=== PATIENT | female | born 1965 | race Hispanic/Latino ===

== ENCOUNTER 2018-03-28 20:05 | Emergency (ER) | payer OTHER ==
[2018-03-28 20:23] LABS: APPEARANCE,URINE Clear (CLEAR); BILIRUBIN,URINE Negative (NEGATIVE); COLOR,URINE Yellow (YELLOW); GLUCOSE, URINE (UA) Negative (NEGATIVE); KETONES,URINE Negative (NEGATIVE); LEUKOCYTE ESTERASE ,URINE Small (NEGATIVE); NITRATE,URINE Negative (NEGATIVE); OCCULT BLOOD,URINE Moderate (NEGATIVE); PROTEIN,URINE Negative (NEGATIVE); UROBILINOGEN,URINE 0.2 mg/dL (0.2-1.0)
[2018-03-28 20:28] LABS: BASOPHILS % (AUTO) 1.5 % (0.0-5.0); EOSINOPHILS % (AUTO) 4.2 % (0.0-8.0); HEMATOCRIT 41.9 % (36-48); LYMPHOCYTES % (AUTO) 44.7 % (21.0-51.0); MEAN CORPUSCULAR HEMOGLOBIN 29.7 pg (27.0-33.0); MEAN CORPUSCULAR HGB CONC 35.3 g/dL (32.0-36.0); MEAN CORPUSCULAR VOLUME 84.1 fL (79-99); MONOCYTES % (AUTO) 7.3 % (3.0-13.0); NEUTROPHILS % (AUTO) 42.3 % (40.0-77.0); NUCLEATED RED BLOOD CELLS 0.1 % (0.0-0.19); PLATELET COUNT (AUTO) 348 K/uL (130-400); RED BLOOD CELL COUNT(AUTO) 4.99 MIL/uL (4.00-5.50); RED CELL DISTRIBUTION WIDTH 13.6 % (11.0-15.5); WHITE BLOOD COUNT (AUTO) 6.2 K/uL (4.8-10.8)
[2018-03-28 20:37] LABS: POTASSIUM 3.2 mmol/L (3.5-5.1)
[2018-03-28 20:38] LABS: BACTERIA,URINE Few /HPF (None Seen)
[2018-03-28 20:40] LABS: MUCUS,URINE Few LPF (None Seen); SQUAMOUS EPITHELIAL CELL,UR Rare /HPF (0-2)
[2018-03-28 20:42] LABS: ALBUMIN 3.6 g/dL (3.5-5.0); BILIRUBIN,TOTAL 0.3 mg/dL (0.2-1.0); TOTAL PROTEIN, SERUM 7.6 g/dL (6.0-8.3)
[2018-03-28] MEDS ORDERED: IOPAMIDOL-370 75 ML VIAL IV ONE (21:33)
[2018-03-28] MEDS ORDERED: DICYCLOMINE HCL 10 MG/ML 2ML AMP IM ONE (22:22)
[2018-03-28] MEDS ORDERED: ONDANSETRON HCL MDV 20ML 2 MG/ML VIAL ONE (22:23)
== END 2018-03-29 00:42 | disposition home or self-care (01) ==
LOC: EDH 20:05
DX: R10.30 Lower abdominal pain, unspecified (principal); Z90.49 Acquired absence of other specified parts of digestive tract; Z90.710 Acquired absence of both cervix and uterus; Z88.0 Allergy status to penicillin
CPT/HCPCS: 36415; 74177; 80053; 81001; 85025; 96372; 96374; 99285; J0500; Q9967

== ENCOUNTER 2018-10-31 19:21 | Emergency (ER) | payer OTHER ==
[2018-10-31 19:49] LABS: APPEARANCE,URINE Clear (CLEAR); BILIRUBIN,URINE Negative (NEGATIVE); COLOR,URINE Yellow (YELLOW); GLUCOSE, URINE (UA) Negative (NEGATIVE); KETONES,URINE Negative (NEGATIVE); LEUKOCYTE ESTERASE ,URINE Negative (NEGATIVE); NITRATE,URINE Negative (NEGATIVE); OCCULT BLOOD,URINE Moderate (NEGATIVE); PROTEIN,URINE Negative (NEGATIVE)
[2018-10-31] MEDS ORDERED: SODIUM CHLORIDE 0.9% 1000ML 1,000 ML IV ONE (20:07)
[2018-10-31 20:12] LABS: BASOPHILS % (AUTO) 1.3 % (0.0-5.0); EOSINOPHILS % (AUTO) 3.4 % (0.0-8.0); HEMATOCRIT 41.6 % (36-48); MEAN CORPUSCULAR HEMOGLOBIN 28.5 pg (27.0-33.0); MEAN CORPUSCULAR VOLUME 83.9 fL (79-99); MONOCYTES % (AUTO) 5.9 % (3.0-13.0); NEUTROPHILS % (AUTO) 49.4 % (40.0-77.0); NUCLEATED RED BLOOD CELLS 0.2 % (0.0-0.19); PLATELET COUNT (AUTO) 286 K/uL (130-400); RED BLOOD CELL COUNT(AUTO) 4.96 MIL/uL (4.00-5.50); RED CELL DISTRIBUTION WIDTH 14.5 % (11.0-15.5); WHITE BLOOD COUNT (AUTO) 6.7 K/uL (4.8-10.8)
[2018-10-31 20:26] LABS: CREATININE 0.8 mg/dL (0.5-1.5); POTASSIUM 3.9 mmol/L (3.5-5.1)
[2018-10-31 20:30] LABS: ALBUMIN 3.4 g/dL (3.5-5.0); BILIRUBIN,TOTAL 0.2 mg/dL (0.2-1.0); TOTAL PROTEIN, SERUM 6.9 g/dL (6.0-8.3)
== END 2018-10-31 21:32 | disposition home or self-care (01) ==
LOC: EDH 19:21
DX: K59.00 Constipation, unspecified (principal); R20.2 Paresthesia of skin; E07.9 Disorder of thyroid, unspecified; Z88.0 Allergy status to penicillin; Z87.442 Personal history of urinary calculi; Z90.49 Acquired absence of other specified parts of digestive tract; Z90.710 Acquired absence of both cervix and uterus
CPT/HCPCS: 36415; 70450; 74176; 80053; 81003; 83690; 84484; 85025; 93005; 99284; J7030

== ENCOUNTER 2019-05-16 10:00 | Day surgery (SDC) | payer OTHER ==
[2019-05-13 11:46] LABS: BASOPHILS % (AUTO) 0.4 % (0.0-5.0); EOSINOPHILS % (AUTO) 2.7 % (0.0-8.0); HEMATOCRIT 44.9 % (36-48); LYMPHOCYTES % (AUTO) 30.3 % (21.0-51.0); MEAN CORPUSCULAR HEMOGLOBIN 29.3 pg (27.0-33.0); MEAN CORPUSCULAR HGB CONC 33.9 g/dL (32.0-36.0); MEAN CORPUSCULAR VOLUME 86.2 fL (79-99); NEUTROPHILS % (AUTO) 60.6 % (40.0-77.0); PLATELET COUNT (AUTO) 279 K/uL (130-400); RED CELL DISTRIBUTION WIDTH 14.2 % (11.0-15.5); WHITE BLOOD COUNT (AUTO) 6.6 K/uL (4.8-10.8)
[2019-05-13 11:50] VITALS: BP 150/79
[2019-05-13 11:53] LABS: APPEARANCE,URINE CLEAR (CLEAR); BILIRUBIN,URINE SMALL (NEGATIVE); COLOR,URINE YELLOW (YELLOW); GLUCOSE, URINE (UA) NEGATIVE (NEGATIVE); KETONES,URINE NEGATIVE (NEGATIVE); LEUKOCYTE ESTERASE ,URINE NEGATIVE (NEGATIVE); NITRATE,URINE NEGATIVE (NEGATIVE); OCCULT BLOOD,URINE LARGE (NEGATIVE); PH,URINE 5.5 (5.0-8.0); PROTEIN,URINE 30 mg/dL (NEGATIVE); UROBILINOGEN,URINE 0.2 mg/dL (0.2-1.0)
[2019-05-13 11:55] LABS: CREATININE 0.9 mg/dL (0.5-1.5); POTASSIUM 3.7 mmol/L (3.5-5.1)
[2019-05-13 11:57] LABS: INR 0.96 (0.85-1.15); PROTHROMBIN TIME 10.1 SEC (9.6-11.6)
[2019-05-13 12:02] LABS: BACTERIA,URINE Rare /HPF (None Seen); MUCUS,URINE Moderate LPF (None Seen); RBC,URINE 0-1 /HPF (0-1); SQUAMOUS EPITHELIAL CELL,UR Few /HPF (0-2)
--- NOTE | 2019-05-15 09:30 | NUR ---
URINE CX/URINALYSIS CALLED DR SEAMAN'S OFFICE AND SPOKE WITH CHRISTEN. FAXED ABNORMAL URINE CX/URINALYSIS RESULTS TO OFFICE AND INFORMED HER TO CALL BACK IF NEW ORDERS RECEIVED.
[~2019-05-16] VITALS: Ht 147.3 cm; Wt 66.0 kg
[2019-05-16] VITALS (18 sets, daily range): BP systolic 102–156; BP diastolic 56–100
[2019-05-16] MEDS: CEFAZOLIN SODIUM 1 GM VIAL IVP ONE ×2 (08:00→14:05)
[~2019-05-16 10:00] MED LIST: DICL75TA5 PO; DULO60CA64 PO; GENTAMICIN 80 MG/NS 100 ML PB 100 ML IV PRN; LEVO100T12 PO; ROSU20TA31 PO
[2019-05-16] MEDS ORDERED: LACTATED RINGERS 1000ML 1,000 ML IV ONE (11:49)
[2019-05-16] MEDS ORDERED: CEFAZOLIN SODIUM 1 GM VIAL ONE (11:49)
[2019-05-16] MEDS ORDERED: SUCCINYLCHOLINE 200MG/10ML SYR ONE (13:07)
[2019-05-16] MEDS ORDERED: LIDOCAINE PF 2% 5ML ABBOJECT ONE (13:07)
[2019-05-16] MEDS ORDERED: DEXAMETHASONE SOD PHOSPHATE 10MG/ML 1ML VIAL ONE ×2 (13:07→13:15)
[2019-05-16] MEDS ORDERED: GLYCOPYRROLATE 1 MG/5 ML SYRINGE ONE (13:10)
[2019-05-16] MEDS ORDERED: ROCURONIUM 10MG/1ML SYR 10 MG/ML ML ONE (13:10)
[2019-05-16] MEDS ORDERED: PROPOFOL 10 MG/ML 20ML VIAL IV ONE (13:10)
[2019-05-16] MEDS ORDERED: NEOSTIGMINE 5MG/5ML SYR IV ONE (13:10)
[2019-05-16] MEDS ORDERED: ONDANSETRON HCL 4 MG/2 ML VIAL ONE (13:10)
[2019-05-16] MEDS ORDERED: MIDAZOLAM HCL 1 MG/ML 2ML VIAL ONE (13:10)
[2019-05-16] MEDS ORDERED: FENTANYL CITRATE PF 50 MCG/1 ML 2ML VIAL ONE (13:11)
[2019-05-16] MEDS ORDERED: LIDOCAINE 1%-EPI 1:100,000 20 ML VIAL IJ ONE (13:53)
[2019-05-16] MEDS ORDERED: NEOMY SULF/POLYMYXIN B SULFATE 1 ML AMPUL IR ONE (13:53)
[2019-05-16] MEDS ORDERED: ESTROGENS,CONJUGATED 0.625 MG/GM 42.5 GM VAG CRM VG ONE (14:43)
[2019-05-16] MEDS ORDERED: MEPERIDINE-PF 25 MG/ML SYG ONE ×2 (15:17→15:39)
--- NOTE | 2019-05-16 16:16 | NUR ---
ASSESSMENT RECEIVED PT FROM [facility] STAFF. PT AAO X3. 16 SYRIAC FC DRAINING TO GRAVITY AT BEDSIDE WITH 300ML OF CLEAR YELLOW URINE IN PLACE. WILL BE DISCONTINUED PER DR. JURGEN LEBLANC.
--- NOTE | 2019-05-16 16:20 | NUR ---
F/C F/C REMOVED USING ASEPTIC TECHNIQUE. 400ML OF CLEAR YELLOW URINE WAS IN THE BAG. VAGINAL PACKING WAS REMOVED WELL INTACT. SLIGHT SPOTTING NOTED TO OB PAD. PT TOLERATED PROCEDURE WELL. NO PAIN.
--- NOTE | 2019-05-16 17:00 | NUR ---
DISCHARGE ORAL AND WRITTEN DISCHARGE INSTRUCTIONS WERE GIVEN TO PT AND PTS DAUGHTER ALONG WITH PRESCRIPTION. BOTH VERBALIZED UNDERSTANDING. NO OTHER QUESTIONS AT THIS TIME.
== END 2019-05-16 17:25 | disposition home or self-care (01) ==
LOC: DAH 10:00
PROVIDERS: ATTEND Urology
DX: T83.84XA Pain due to genitourinary prosthetic devices, implants and grafts, initial encounter (principal); Y83.8 Other surgical procedures as the cause of abnormal reaction of the patient, or of later complication, without mention of misadventure at the time of the procedure; Y92.89 Other specified places as the place of occurrence of the external cause; R10.2 Pelvic and perineal pain; K21.9 Gastro-esophageal reflux disease without esophagitis; Z98.890 Other specified postprocedural states; Z90.49 Acquired absence of other specified parts of digestive tract; Z79.899 Other long term (current) drug therapy; Z90.710 Acquired absence of both cervix and uterus; Z88.0 Allergy status to penicillin; Z83.3 Family history of diabetes mellitus; Z82.3 Family history of stroke; Z82.49 Family history of ischemic heart disease and other diseases of the circulatory system
CPT/HCPCS: 36415; 57287; 80048; 81001; 85025; 85610; 87088; 88305; 93005; A4344; A4600; A4930; G0168; J0330; J0690; J1100 ×2; J1580; J2001; J2175 ×2; J2250; J2405; J2704; J2710; J3010; J3490 ×3; J7120 ×2

== ENCOUNTER 2021-10-17 03:10 | Emergency (ER) | payer OTHER, MEDICARE ==
[~2021-10-17] VITALS: Ht 144.8 cm; Wt 68.0 kg
[~2021-10-17 03:10] MED LIST changes: -GENTAMICIN 80 MG/NS 100 ML PB 100 ML IV PRN
[2021-10-17] MEDS ORDERED: IBUPROFEN 600 MG TABLET ONE (04:18)
[2021-10-17] MEDS ORDERED: IBUPROFEN 600 MG TABLET PO ONE (04:30)
[2021-10-17 04:38] LABS: BASOPHILS % (AUTO) 1.3 % (0.0-5.0); EOSINOPHILS % (AUTO) 3.3 % (0.0-8.0); HEMATOCRIT 42.9 % (36-48); LYMPHOCYTES % (AUTO) 39.2 % (21.0-51.0); MEAN CORPUSCULAR HEMOGLOBIN 28.6 pg (27.0-33.0); MEAN CORPUSCULAR HGB CONC 33.6 g/dL (32.0-36.0); MEAN CORPUSCULAR VOLUME 85.1 fL (79-99); MONOCYTES % (AUTO) 6.8 % (3.0-13.0); NEUTROPHILS % (AUTO) 49.1 % (40.0-77.0); PLATELET COUNT (AUTO) 314 K/uL (130-400); RED BLOOD CELL COUNT(AUTO) 5.04 MIL/uL (4.00-5.50); RED CELL DISTRIBUTION WIDTH 12.9 % (11.0-15.5); WHITE BLOOD COUNT (AUTO) 6.7 K/uL (4.8-10.8)
[2021-10-17 04:54] LABS: CREATININE 0.7 mg/dL (0.5-1.5); POTASSIUM 3.8 mmol/L (3.5-5.1)
[2021-10-17 04:59] LABS: ALBUMIN 3.9 g/dL (3.5-5.0); BILIRUBIN,TOTAL 0.3 mg/dL (0.2-1.0); TOTAL PROTEIN, SERUM 7.8 g/dL (6.0-8.3)
[2021-10-17] MEDS ORDERED: IBUP-2070 PO (05:42)
[2021-10-17 05:56] VITALS: BP 140/84
== END 2021-10-17 06:03 | disposition home or self-care (01) ==
LOC: EDH 03:10
DX: R07.89 Other chest pain (principal); M25.512 Pain in left shoulder; R11.0 Nausea; Z88.0 Allergy status to penicillin; Z79.1 Long term (current) use of non-steroidal anti-inflammatories (NSAID); Z79.899 Other long term (current) drug therapy
CPT/HCPCS: 36415; 71045; 73000; 80053; 82550; 84484; 85025; 85378; 93005

== ENCOUNTER → 2023-01-10 | Outpatient (CLI) | payer OTHER, MEDICARE ==
[~2023-01-10] MED LIST changes: +IBUP-2070 PO
== END | disposition home or self-care (01) ==
LOC: RAH 07:31
PROVIDERS: ATTEND Otolaryngology Plastic Surgery within the Head & Neck
DX: K21.9 Gastro-esophageal reflux disease without esophagitis (principal); R13.10 Dysphagia, unspecified
CPT/HCPCS: 74230; 92611